=== PATIENT | female | born 2000 | race Two or more races ===

== ENCOUNTER 2018-10-18 13:42 | Emergency (ER) | payer MEDICAID ==
[~2018-10-18] VITALS: Ht 160 cm; Wt 90.9 kg
[2018-10-18 14:10] VITALS: BP 138/67
== END 2018-10-18 14:47 | disposition home or self-care (01) ==
LOC: ER 13:42
DX: S60.012A Contusion of left thumb without damage to nail, initial encounter (principal); F12.10 Cannabis abuse, uncomplicated; W19.XXXA Unspecified fall, initial encounter; Y93.89 Activity, other specified; Y92.89 Other specified places as the place of occurrence of the external cause; Y99.8 Other external cause status
CPT/HCPCS: 73130; 81025

== ENCOUNTER → 2019-04-20 | Emergency (ER) | payer SELFPAY ==
[~2019-04-20] VITALS: Ht 160 cm; Wt 88.9 kg
[~2019-04-20] MED LIST: METOCLOPRAMIDE HCL 5MG/ml INJ 2ml VIAL IV ONE; SODIUM CHLORIDE 0.9% 1,000 ML IVB ONE; cefTRIAXone 1GM/50ML D5W 50 ML IV ONE
[2019-04-20 08:28] LABS: Urine Bacteria NONE SEEN /hpf (None Seen); Urine Blood 1+ /uL (Negative); Urine Mucus FEW (None Seen); Urine Specific Gravity 1.013 (1.001-1.035); Urine WBC 144 /hpf (0 - 5)
[2019-04-20 08:59] LABS: Basophils # (auto) 0 uL; Basophils % (auto) 0.4 % (0.0-2.0); Eosinophils # (auto) 0 uL; Lymphocytes # (auto) 1.3 uL; Mean Corpuscular Volume 77.5 fL (80.0-100.0)
[2019-04-20 09:01] LABS: Eosinophils % (auto) 0.2 % (0.0-7.0); Hematocrit 38.7 % (36.0-46.0); Hemoglobin 12.7 g/dL (12.2-16.2); Lymphocytes % (auto) 11.3 % (10.0-50.0); Mean Corpuscular Hemoglobin 25.4 pg (28.0-32.0); Mean Corpuscular Hgb Conc. 32.8 g/dL (32.0-36.0); Monocytes # (auto) 1.4 uL; Monocytes % (auto) 12.2 % (0.0-12.0); Neutrophils # (auto) 8.7 uL; Neutrophils % (auto) 75.9 % (37.0-80.0); Platelet Count (auto) 275 10^3/uL (140-450); Red Blood Cells 4.99 10^6/uL (4.0-5.20); Red Cell Distribution Width 16.6 % (11.8-14.3); White Blood Cell 11.5 10^3/uL (4.4-10.8)
[2019-04-20 09:17] LABS: Calcium 8.5 mg/dL (8.5-10.1); Potassium 3.6 mmol/L (3.5-5.1)
[2019-04-20 09:23] LABS: Albumin 2.8 g/dL (3.4-5.0); BUN/Creatinine Ratio 7.8; Bilirubin, Total 1.1 mg/dL (0.2-1.0); Total Protein 6.7 g/dL (6.4-8.2)
[2019-04-20 09:24] LABS: Magnesium 2.2 mg/dL (1.6-2.6)
[2019-04-20 10:00] VITALS: BP 121/67
== END | disposition home or self-care (01) ==
LOC: ER 07:44
DX: N39.0 Urinary tract infection, site not specified (principal); R11.2 Nausea with vomiting, unspecified; F12.10 Cannabis abuse, uncomplicated
CPT/HCPCS: 36415; 80053; 81001; 83690; 83735; 84702; 85025; 96361; 96365; 96375; 99284; J0696; J2765

== ENCOUNTER 2021-09-20 03:53 | Emergency (ER) | payer MEDICAID ==
[~2021-09-20] VITALS: Ht 160 cm; Wt 93.2 kg
[2021-09-20 04:02] VITALS: BP 104/77
== END 2021-09-20 06:41 | disposition left against medical advice (07) ==
LOC: EDBD 03:53 → ER 03:53
DX: S61.431A Puncture wound without foreign body of right hand, initial encounter (principal); S81.831A Puncture wound without foreign body, right lower leg, initial encounter; Z53.21 Procedure and treatment not carried out due to patient leaving prior to being seen by health care provider; X99.8XXA Assault by other sharp object, initial encounter; Y93.89 Activity, other specified; Y92.89 Other specified places as the place of occurrence of the external cause; Y99.8 Other external cause status